=== PATIENT | male | born 1970 | race Caucasian/White ===

== ENCOUNTER 2018-02-18 21:04 | Inpatient (IN) | payer MEDICAID, OTHER ==
[~2018-02-18] VITALS: Ht 177.8 cm; Wt 102.7 kg
[2018-02-18] MEDS ORDERED: LIDOCAINE-MPF 1%, 2ML ONE (21:15)
[2018-02-18] MEDS ORDERED: LIDOCAINE-MPF 1%, 5ML ONE (21:36)
[2018-02-18 21:45] LABS: MEAN CORPUSCULAR HEMOGLOBIN 35.3 pg (27.5-34.5); MEAN CORPUSCULAR VOLUME 100.7 fL (81-97); MEAN PLATELET VOLUME 8.8 fL (7.4-10.4); PLATELET COUNT 208 x10^3/uL (130-400); RED BLOOD COUNT 3.59 x10^6/uL (4.38-5.82); RED CELL DISTRIBUTION WIDTH 16.2 % (9.4-14.8)
[2018-02-18 21:49] LABS: INTERNATIONAL NORMALIZED RATIO 1.77 (0.93-1.1); PROTHROMBIN TIME 18.2 Seconds (9.6-11.5)
[2018-02-18 21:52] LABS: ALANINE AMINOTRANSFERASE 109 U/L (12-78); ALBUMIN 1.4 g/dL (3.4-5.0); ANION GAP 15 mmol/L (5-15); CALCIUM 6.3 mg/dL (8.5-10.1); CHLORIDE 86 mmol/L (98-107); CREATININE 2.97 mg/dL (0.7-1.3)
[2018-02-18 21:55] LABS: ALKALINE PHOSPHATASE 265 U/L (45-117); TOTAL PROTEIN 5.2 g/dL (6.4-8.2)
[2018-02-18 21:57] LABS: BILIRUBIN,TOTAL 18.4 mg/dL (0.2-1.0)
[2018-02-18] MEDS ORDERED: CEFTRIAXONE PMX 1GM/50ML 50 ML IV ONE (22:00)
[2018-02-18 22:03] LABS: BASOPHILS % (AUTO) 0 % (0-1); EOSINOPHILS # (AUTO) 0.01 x10^3/uL (0-0.4); EOSINOPHILS % (AUTO) 0 % (1-7); LYMPHOCYTES # (AUTO) 0.81 x10^3/uL (1-3.4); LYMPHOCYTES % (AUTO) 4 % (22-44); MD SCAN; MONOCYTES # (AUTO) 3.98 x10^3/uL (0.2-0.8); MONOCYTES % (AUTO) 19 % (2-9); NEUTROPHILS # (AUTO) 16.38 x10^3/uL (1.8-6.8); NEUTROPHILS % (AUTO) 77 % (42-75)
[2018-02-18] MEDS ORDERED: CEFTRIAXONE PMX 1GM/50ML 50 ML ONE (22:25)
[2018-02-18] MEDS: CEFTRIAXONE PMX 1GM/50ML 50 ML IV SCH (22:47)
[2018-02-18] MEDS ORDERED: DEXTROSE 50%, 50ML SYRINGE IVPush ONE (23:00)
[2018-02-18] MEDS: ALBUMIN HUMAN 25% 100 ML IV SCH (23:00)
[2018-02-18] MEDS ORDERED: MAGNESIUM SULFATE PMX 4GM/100M 100 ML IV ONE (23:00)
[2018-02-18] MEDS: SODIUM CHLORIDE FLUSH 10ML SYR IVF SCH (23:30)
[2018-02-18] MEDS ORDERED: BISACODYL 10 MG SUPP PR PRN (23:30)
[2018-02-18] MEDS ORDERED: POLYETHYLENE GLYCOL 17 GM PACKET PO PRN (23:30)
[2018-02-18] MEDS ORDERED: ONDANSETRON 2MG/ML, 2ML IVPush PRN (23:30)
[2018-02-18 23:49] LABS: FOLATE LEVEL 4.9 ng/mL (3.1-17.5)
[2018-02-18 23:55] LABS: BILIRUBIN, DIRECT 14.2 mg/dL (0.1-0.2)
[2018-02-19 00:37] LABS: POTASSIUM,URINE RANDOM 62 mmol/L; SODIUM,URINE RANDOM 7 mmol/L
[2018-02-19] MEDS ORDERED: DEXTROSE 50%, 50ML SYRINGE ONE (00:41)
[2018-02-19 00:50] LABS: CHLORIDE,URINE RANDOM < 10 mmol/L
[2018-02-19 01:00] LABS: MICROSCOPIC INDICATED
[2018-02-19 01:01] LABS: CULTURE INDICATED? YES
[2018-02-19 05:13] LABS: ALBUMIN 1.8 g/dL (3.4-5.0); ANION GAP 15 mmol/L (5-15); CALCIUM 6.3 mg/dL (8.5-10.1); CHLORIDE 88 mmol/L (98-107)
[2018-02-19 05:18] LABS: ALANINE AMINOTRANSFERASE 99 U/L (12-78); ALKALINE PHOSPHATASE 230 U/L (45-117); CREATININE 3.14 mg/dL (0.7-1.3); TOTAL PROTEIN 5.1 g/dL (6.4-8.2)
[2018-02-19 05:21] LABS: BILIRUBIN,TOTAL 19.3 mg/dL (0.2-1.0)
[2018-02-19 07:12] LABS: MEAN CORPUSCULAR HEMOGLOBIN 35.4 pg (27.5-34.5); MEAN CORPUSCULAR VOLUME 100.9 fL (81-97); MEAN PLATELET VOLUME 8.9 fL (7.4-10.4); PLATELET COUNT 171 x10^3/uL (130-400); RED BLOOD COUNT 3.41 x10^6/uL (4.38-5.82); RED CELL DISTRIBUTION WIDTH 16.6 % (9.4-14.8)
[2018-02-19 07:31] LABS: MD YES
[2018-02-19 07:37] LABS: INTERNATIONAL NORMALIZED RATIO 1.56 (0.93-1.1); PROTHROMBIN TIME 16.1 Seconds (9.6-11.5)
[2018-02-19 07:40] LABS: ANISOCYTOSIS 1+; BAND#(MANUAL) 0.68 x10^3/uL; BANDS%(MANUAL) 4 % (0-7); LYMPH#(MANUAL) 0.85 x10^3/uL (1-3.4); LYMPHS% (MANUAL) 5 % (22-44); METAMYELOCYTES# (MANUAL) 0.17 x10^3/uL (0-0); METAMYELOCYTES% (MANUAL) 1 % (0-1); MONOS#(MANUAL) 0.34 x10^3/uL (0.3-2.7); MONOS% (MANUAL) 2 % (2-9); SEG#(MANUAL) 14.87 x10^3/uL (1.8-6.8); SEGS% (MANUAL) 88 % (42-75)
[2018-02-19 07:41] LABS: <PLATELET ESTIMATE> ADEQUATE; <PLT MORPHOLOGY> NORMAL PLT MORPH
[2018-02-19] MEDS: ALBUMIN HUMAN 25% 100 ML IV SCH ×2 (07:53→15:19)
[2018-02-19] MEDS: SENNA/DOCUSATE TABLET PO SCH (08:45)
[2018-02-19] MEDS: SODIUM CHLORIDE 0.9% 1,000 ML IV SCH ×2 (12:00→23:05)
[2018-02-19] MEDS: MIDODRINE 5 MG TABLET PO SCH ×3 (13:00→20:31)
[2018-02-19] MEDS: SODIUM CHLORIDE FLUSH 10ML SYR IVF SCH ×2 (15:19→21:00)
[2018-02-19] MEDS: OCTREOTIDE 100MCG/ML, 1ML (0.1MG/ML) SQ SCH ×3 (15:35→20:32)
[2018-02-19 16:16] LABS: OSMOLALITY,URINE 292 mOsm/kg (500-850)
[2018-02-19 16:32] LABS: AMPHETAMINE SCREEN, URINE Negative (Negative); BARBITURATE SCREEN, URINE Negative (Negative); BENZODIAZEPINE SCREEN, URINE Negative (Negative); CANNABINOID SCREEN, URINE Positive (Negative); COCAINE SCREEN, URINE Negative (Negative); METHADONE SCREEN, URINE Negative (Negative); OPIATE SCREEN, URINE Negative (Negative)
[2018-02-19] MEDS ORDERED: ONDANSETRON ODT 4 MG PO PRN (18:30)
[2018-02-19] MEDS ORDERED: DEXTROSE 50%, 50ML SYRINGE IVPush PRN (20:00)
[2018-02-19 21:45] LABS: CLOSTRIDIUM DIFFICILE ANTIGEN NEGATIVE; CLOSTRIDIUM DIFFICILE TOXIN NEGATIVE (Negative)
[2018-02-19] MEDS: CEFTRIAXONE PMX 1GM/50ML 50 ML IV SCH (22:55)
[2018-02-20] MEDS ORDERED: ALBUTEROL SULFATE 2.5 MG/3 ML ONE (02:15)
[2018-02-20] MEDS ORDERED: ALBUTEROL SULFATE 2.5 MG/3 ML NPPB PRN (02:30)
[2018-02-20 04:24] LABS: MEAN CORPUSCULAR HEMOGLOBIN 35.2 pg (27.5-34.5); MEAN CORPUSCULAR HGB CONC 35.1 g/dL (33.2-36.2); MEAN CORPUSCULAR VOLUME 100.5 fL (81-97); MEAN PLATELET VOLUME 8.7 fL (7.4-10.4); PLATELET COUNT 164 x10^3/uL (130-400); RED BLOOD COUNT 3.04 x10^6/uL (4.38-5.82); RED CELL DISTRIBUTION WIDTH 16.4 % (9.4-14.8)
[2018-02-20 04:33] LABS: MD YES
[2018-02-20 04:36] LABS: ALANINE AMINOTRANSFERASE 83 U/L (12-78); ALBUMIN 1.9 g/dL (3.4-5.0); ANION GAP 14 mmol/L (5-15); CHLORIDE 90 mmol/L (98-107)
[2018-02-20 04:38] LABS: ANISOCYTOSIS 1+; BAND#(MANUAL) 0.86 x10^3/uL; BANDS%(MANUAL) 6 % (0-7); LYMPH#(MANUAL) 1.15 x10^3/uL (1-3.4); LYMPHS% (MANUAL) 8 % (22-44); MONOS#(MANUAL) 0.58 x10^3/uL (0.3-2.7); MONOS% (MANUAL) 4 % (2-9); NRBC % (MANUAL) 1 % (0-1); SEG#(MANUAL) 11.81 x10^3/uL (1.8-6.8); SEGS% (MANUAL) 82 % (42-75)
[2018-02-20 04:39] LABS: POLYCHROMASIA 1+; TARGET CELLS 1+
[2018-02-20 04:40] LABS: <PLATELET ESTIMATE> ADEQUATE; <PLT MORPHOLOGY> NORMAL PLT MORPH
[2018-02-20 04:56] LABS: ALKALINE PHOSPHATASE 169 U/L (45-117)
[2018-02-20 05:01] LABS: CREATININE 3.15 mg/dL (0.7-1.3); TOTAL PROTEIN 4.7 g/dL (6.4-8.2)
[2018-02-20 05:03] LABS: CALCIUM 5.9 mg/dL (8.5-10.1)
[2018-02-20 05:35] VITALS: BP 97/52
[2018-02-20] MEDS: OCTREOTIDE 100MCG/ML, 1ML (0.1MG/ML) SQ SCH ×3 (08:29→21:22)
[2018-02-20] MEDS: SODIUM CHLORIDE FLUSH 10ML SYR IVF SCH ×2 (08:30→21:21)
[2018-02-20] MEDS: NICOTINE 21 MG/24 HR PATCH.TD24 TD SCH (08:30)
[2018-02-20] MEDS: SENNA/DOCUSATE TABLET PO SCH (08:30)
[2018-02-20] MEDS: MIDODRINE 5 MG TABLET PO SCH ×3 (08:30→21:23)
[2018-02-20] MEDS ORDERED: NICOTINE 21 MG/24 HR PATCH.TD24 TD SCH (09:00)
[2018-02-20] MEDS ORDERED: CALCIUM GLUCONATE 9.2 MEQ in SODIUM CHLORIDE 0.9% 100 ML IV ONE (09:00)
[2018-02-20 12:00] VITALS: BP 98/55
[2018-02-20] MEDS: SODIUM CHLORIDE 0.9% 1,000 ML IV SCH (13:50)
[2018-02-20 18:40] VITALS: BP 102/57
[2018-02-20] MEDS: CEFTRIAXONE PMX 1GM/50ML 50 ML IV SCH (23:18)
[2018-02-21 00:42] VITALS: BP 99/52
[2018-02-21] MEDS: SODIUM CHLORIDE 0.9% 1,000 ML IV SCH ×2 (03:55→17:20)
[2018-02-21 04:39] LABS: MEAN CORPUSCULAR HGB CONC 35.5 g/dL (33.2-36.2); MEAN CORPUSCULAR VOLUME 101.2 fL (81-97); MEAN PLATELET VOLUME 8.5 fL (7.4-10.4); PLATELET COUNT 158 x10^3/uL (130-400); RED BLOOD COUNT 3.13 x10^6/uL (4.38-5.82); RED CELL DISTRIBUTION WIDTH 16.3 % (9.4-14.8)
[2018-02-21 04:49] LABS: CHLORIDE 93 mmol/L (98-107)
[2018-02-21 05:07] LABS: % IRON SATURATION 54 % (20-55); ALANINE AMINOTRANSFERASE 88 U/L (12-78); ALBUMIN 1.7 g/dL (3.4-5.0); ALKALINE PHOSPHATASE 180 U/L (45-117); IRON LEVEL 59 mcg/dL (65-175); TOTAL IRON BINDING CAPACITY 109 mcg/dL (250-450)
[2018-02-21 05:26] LABS: CALCIUM 5.8 mg/dL (8.5-10.1); CREATININE 2.03 mg/dL (0.7-1.3)
[2018-02-21 05:27] LABS: BILIRUBIN,TOTAL 25.1 mg/dL (0.2-1.0); TOTAL PROTEIN 4.5 g/dL (6.4-8.2)
[2018-02-21 05:31] LABS: ANION GAP 14 mmol/L (5-15)
[2018-02-21 06:14] LABS: MD YES
[2018-02-21 06:15] LABS: BAND#(MANUAL) 0.67 x10^3/uL; BANDS%(MANUAL) 4 % (0-7); EOS% (MANUAL) 3 % (1-7); LYMPH#(MANUAL) 1.17 x10^3/uL (1-3.4); LYMPHS% (MANUAL) 7 % (22-44); MONOS#(MANUAL) 0.84 x10^3/uL (0.3-2.7); MONOS% (MANUAL) 5 % (2-9); NRBC % (MANUAL) 1 % (0-1); SEG#(MANUAL) 13.53 x10^3/uL (1.8-6.8); SEGS% (MANUAL) 81 % (42-75)
[2018-02-21 06:16] LABS: ANISOCYTOSIS 1+; POLYCHROMASIA 1+
[2018-02-21 06:17] LABS: <PLATELET ESTIMATE> ADEQUATE; <PLT MORPHOLOGY> NORMAL PLT MORPH; TARGET CELLS 1+
[2018-02-21 07:15] VITALS: BP 102/48
[2018-02-21] MEDS: SENNA/DOCUSATE TABLET PO SCH (09:00)
[2018-02-21] MEDS: NICOTINE 21 MG/24 HR PATCH.TD24 TD SCH (10:31)
[2018-02-21] MEDS: CALCITRIOL 0.5 MCG CAPSULE PO SCH (10:31)
[2018-02-21] MEDS: ERGOCALCIFEROL 50,000 UNIT CAPSULE PO SCH (10:31)
[2018-02-21] MEDS: MIDODRINE 5 MG TABLET PO SCH ×3 (10:31→19:53)
[2018-02-21] MEDS: SODIUM CHLORIDE FLUSH 10ML SYR IVF SCH ×2 (10:32→19:53)
[2018-02-21] MEDS: OCTREOTIDE 100MCG/ML, 1ML (0.1MG/ML) SQ SCH ×3 (10:32→19:53)
[2018-02-21 14:19] VITALS: BP 94/54
[2018-02-21 18:51] VITALS: BP 93/43
[2018-02-21] MEDS: CEFTRIAXONE PMX 1GM/50ML 50 ML IV SCH (23:04)
[2018-02-22 01:12] VITALS: BP 94/50
[2018-02-22 04:19] LABS: MEAN CORPUSCULAR HEMOGLOBIN 34.9 pg (27.5-34.5); MEAN CORPUSCULAR HGB CONC 34.3 g/dL (33.2-36.2); MEAN CORPUSCULAR VOLUME 101.8 fL (81-97); MEAN PLATELET VOLUME 8.7 fL (7.4-10.4); PLATELET COUNT 145 x10^3/uL (130-400); RED BLOOD COUNT 3.21 x10^6/uL (4.38-5.82); RED CELL DISTRIBUTION WIDTH 16.6 % (9.4-14.8)
[2018-02-22 04:31] LABS: ALANINE AMINOTRANSFERASE 95 U/L (12-78); ALBUMIN 1.7 g/dL (3.4-5.0); ANION GAP 10 mmol/L (5-15); CHLORIDE 99 mmol/L (98-107)
[2018-02-22 04:42] LABS: ALKALINE PHOSPHATASE 218 U/L (45-117); CREATININE 1.34 mg/dL (0.7-1.3); TOTAL PROTEIN 4.6 g/dL (6.4-8.2)
[2018-02-22 04:43] LABS: BILIRUBIN,TOTAL 25.1 mg/dL (0.2-1.0); CALCIUM 5.7 mg/dL (8.5-10.1)
[2018-02-22 04:44] LABS: MD YES
[2018-02-22 04:46] LABS: ANISOCYTOSIS 1+; BAND#(MANUAL) 0.67 x10^3/uL; BANDS%(MANUAL) 4 % (0-7); EOS#(MANUAL) 0.34 x10^3/uL (0.0-0.4); EOS% (MANUAL) 2 % (1-7); LYMPH#(MANUAL) 0.84 x10^3/uL (1-3.4); LYMPHS% (MANUAL) 5 % (22-44); MONOS#(MANUAL) 1.18 x10^3/uL (0.3-2.7); MONOS% (MANUAL) 7 % (2-9); POLYCHROMASIA 1+; SEG#(MANUAL) 13.78 x10^3/uL (1.8-6.8); SEGS% (MANUAL) 82 % (42-75)
[2018-02-22 04:47] LABS: <PLATELET ESTIMATE> ADEQUATE; <PLT MORPHOLOGY> NORMAL PLT MORPH
[2018-02-22] MEDS: SODIUM CHLORIDE 0.9% 1,000 ML IV SCH ×2 (05:29→20:29)
[2018-02-22 07:10] VITALS: BP 97/53
[2018-02-22] MEDS: SENNA/DOCUSATE TABLET PO SCH (08:14)
[2018-02-22] MEDS: NICOTINE 21 MG/24 HR PATCH.TD24 TD SCH (08:33)
[2018-02-22] MEDS: SODIUM CHLORIDE FLUSH 10ML SYR IVF SCH ×2 (08:33→20:30)
[2018-02-22] MEDS: MIDODRINE 5 MG TABLET PO SCH ×3 (08:34→20:30)
[2018-02-22] MEDS: OCTREOTIDE 100MCG/ML, 1ML (0.1MG/ML) SQ SCH ×3 (08:34→21:28)
[2018-02-22] MEDS: CALCITRIOL 0.5 MCG CAPSULE PO SCH (08:34)
[2018-02-22 13:49] VITALS: BP 104/55
[2018-02-22 18:56] VITALS: BP 102/58
[2018-02-22] MEDS: CEFTRIAXONE PMX 1GM/50ML 50 ML IV SCH (23:20)
[2018-02-23 03:29] VITALS: BP 97/51
[2018-02-23 04:45] LABS: MEAN CORPUSCULAR HGB CONC 35.5 g/dL (33.2-36.2); MEAN CORPUSCULAR VOLUME 101.5 fL (81-97); MEAN PLATELET VOLUME 8.3 fL (7.4-10.4); PLATELET COUNT 143 x10^3/uL (130-400); RED BLOOD COUNT 3.18 x10^6/uL (4.38-5.82); RED CELL DISTRIBUTION WIDTH 16.2 % (9.4-14.8)
[2018-02-23 04:48] LABS: ALBUMIN 1.6 g/dL (3.4-5.0); ANION GAP 11 mmol/L (5-15); CALCIUM 6.2 mg/dL (8.5-10.1); CHLORIDE 100 mmol/L (98-107)
[2018-02-23 05:06] LABS: ALANINE AMINOTRANSFERASE 96 U/L (12-78); ALKALINE PHOSPHATASE 240 U/L (45-117)
[2018-02-23 05:24] LABS: CREATININE 1.51 mg/dL (0.7-1.3); TOTAL PROTEIN 4.6 g/dL (6.4-8.2)
[2018-02-23 05:25] LABS: BILIRUBIN,TOTAL 25.5 mg/dL (0.2-1.0)
[2018-02-23 05:40] LABS: MD YES
[2018-02-23 05:42] LABS: ANISOCYTOSIS 1+; BAND#(MANUAL) 1.26 x10^3/uL; BANDS%(MANUAL) 7 % (0-7); EOS#(MANUAL) 0.18 x10^3/uL (0.0-0.4); EOS% (MANUAL) 1 % (1-7); HYPOCHROMIA 1+; LYMPH#(MANUAL) 0.36 x10^3/uL (1-3.4); LYMPHS% (MANUAL) 2 % (22-44); MONOS#(MANUAL) 0.36 x10^3/uL (0.3-2.7); MONOS% (MANUAL) 2 % (2-9); MYELOCYTES# (MANUAL) 0.54 x10^3/uL (0-0); MYELOCYTES% (MANUAL) 3 % (0-0); POLYCHROMASIA 1+; SEGS% (MANUAL) 85 % (42-75)
[2018-02-23 05:43] LABS: <PLATELET ESTIMATE> ADEQUATE; <PLT MORPHOLOGY> NORMAL PLT MORPH
[2018-02-23 06:53] VITALS: BP 105/58
[2018-02-23] MEDS: SENNA/DOCUSATE TABLET PO SCH (08:49)
[2018-02-23] MEDS: SODIUM CHLORIDE FLUSH 10ML SYR IVF SCH ×2 (10:18→19:55)
[2018-02-23] MEDS: NICOTINE 21 MG/24 HR PATCH.TD24 TD SCH (10:19)
[2018-02-23] MEDS: CALCITRIOL 0.5 MCG CAPSULE PO SCH (10:19)
[2018-02-23] MEDS: SODIUM BICARBONATE 650 MG TABLET PO SCH ×3 (10:19→21:20)
[2018-02-23] MEDS: MIDODRINE 5 MG TABLET PO SCH ×3 (10:20→21:20)
[2018-02-23] MEDS: OCTREOTIDE 100MCG/ML, 1ML (0.1MG/ML) SQ SCH ×3 (10:20→21:20)
[2018-02-23 12:33] VITALS: BP 101/54
[2018-02-23 18:22] VITALS: BP 99/58
[2018-02-23] MEDS: CEFTRIAXONE PMX 1GM/50ML 50 ML IV SCH (23:16)
[2018-02-24 03:45] VITALS: BP 98/54
[2018-02-24 08:18] LABS: MEAN CORPUSCULAR HEMOGLOBIN 35.2 pg (27.5-34.5); MEAN CORPUSCULAR HGB CONC 34.8 g/dL (33.2-36.2); MEAN CORPUSCULAR VOLUME 101.1 fL (81-97); MEAN PLATELET VOLUME 8.1 fL (7.4-10.4); PLATELET COUNT 134 x10^3/uL (130-400); RED BLOOD COUNT 3.32 x10^6/uL (4.38-5.82); RED CELL DISTRIBUTION WIDTH 17.2 % (9.4-14.8)
[2018-02-24 08:28] LABS: ALANINE AMINOTRANSFERASE 104 U/L (12-78); ALBUMIN 1.6 g/dL (3.4-5.0); ANION GAP 14 mmol/L (5-15); CALCIUM 6.8 mg/dL (8.5-10.1); CHLORIDE 97 mmol/L (98-107)
[2018-02-24 08:30] LABS: ALKALINE PHOSPHATASE 282 U/L (45-117); CREATININE 2.27 mg/dL (0.7-1.3); TOTAL PROTEIN 4.9 g/dL (6.4-8.2)
[2018-02-24 08:33] LABS: MD YES
[2018-02-24 08:35] LABS: ANISOCYTOSIS 1+; BAND#(MANUAL) 0.67 x10^3/uL; BANDS%(MANUAL) 3 % (0-7); EOS#(MANUAL) 0.45 x10^3/uL (0.0-0.4); EOS% (MANUAL) 2 % (1-7); LYMPH#(MANUAL) 0.67 x10^3/uL (1-3.4); LYMPHS% (MANUAL) 3 % (22-44); MONOS#(MANUAL) 1.12 x10^3/uL (0.3-2.7); MONOS% (MANUAL) 5 % (2-9); MYELOCYTES# (MANUAL) 0.45 x10^3/uL (0-0); MYELOCYTES% (MANUAL) 2 % (0-0); PMNS WITH VACUOLES 1+; SEG#(MANUAL) 18.96 x10^3/uL (1.8-6.8); SEGS% (MANUAL) 85 % (42-75); TOXIC GRAN 1+
[2018-02-24 08:36] LABS: POLYCHROMASIA 1+
[2018-02-24 08:37] LABS: <PLATELET ESTIMATE> ADEQUATE; <PLT MORPHOLOGY> NORMAL PLT MORPH
[2018-02-24 08:48] LABS: BILIRUBIN,TOTAL 27.8 mg/dL (0.2-1.0)
[2018-02-24] MEDS: SENNA/DOCUSATE TABLET PO SCH (09:00)
[2018-02-24 09:07] VITALS: BP 105/53
[2018-02-24] MEDS: SODIUM CHLORIDE FLUSH 10ML SYR IVF SCH ×2 (10:41→20:18)
[2018-02-24] MEDS: NICOTINE 21 MG/24 HR PATCH.TD24 TD SCH (10:42)
[2018-02-24] MEDS: OCTREOTIDE 100MCG/ML, 1ML (0.1MG/ML) SQ SCH ×3 (10:42→20:18)
[2018-02-24] MEDS: CALCITRIOL 0.5 MCG CAPSULE PO SCH (10:43)
[2018-02-24] MEDS: MIDODRINE 5 MG TABLET PO SCH ×3 (10:43→20:17)
[2018-02-24] MEDS: SODIUM BICARBONATE 650 MG TABLET PO SCH ×3 (10:43→20:17)
[2018-02-24] MEDS: ALBUMIN HUMAN 25% 100 ML IV SCH ×2 (13:30→20:17)
[2018-02-24 14:16] LABS: POTASSIUM,URINE RANDOM 23 mmol/L; SODIUM,URINE RANDOM 10 mmol/L
[2018-02-24 14:17] LABS: CHLORIDE,URINE RANDOM < 10 mmol/L
[2018-02-24 14:30] LABS: MICROSCOPIC INDICATED
[2018-02-24 14:32] LABS: CULTURE INDICATED? YES
[2018-02-24 15:41] VITALS: BP 101/57
[2018-02-24] MEDS: ALUMINUM/MAG/SIMETHICONE 30 ML UDC PO PRN (17:44)
[2018-02-24] MEDS: CIPROFLOXACIN 250 MG TABLET PO SCH ×2 (17:46→20:17)
[2018-02-24 19:06] VITALS: BP 104/65
[2018-02-25 03:03] VITALS: BP 99/58
[2018-02-25 04:42] LABS: MEAN CORPUSCULAR HEMOGLOBIN 36.2 pg (27.5-34.5); MEAN CORPUSCULAR VOLUME 100.6 fL (81-97); MEAN PLATELET VOLUME 8.7 fL (7.4-10.4); PLATELET COUNT 122 x10^3/uL (130-400); RED BLOOD COUNT 3.11 x10^6/uL (4.38-5.82); RED CELL DISTRIBUTION WIDTH 16.8 % (9.4-14.8)
[2018-02-25 04:50] LABS: ALBUMIN 2.1 g/dL (3.4-5.0); ANION GAP 12 mmol/L (5-15); CALCIUM 7.2 mg/dL (8.5-10.1); CHLORIDE 98 mmol/L (98-107)
[2018-02-25] MEDS: ALBUMIN HUMAN 25% 100 ML IV SCH ×3 (04:57→21:40)
[2018-02-25 05:04] LABS: MD YES
[2018-02-25 05:07] LABS: ANISOCYTOSIS 1+; BANDS%(MANUAL) 3 % (0-7); EOS#(MANUAL) 0.23 x10^3/uL (0.0-0.4); EOS% (MANUAL) 1 % (1-7); LYMPH#(MANUAL) 0.93 x10^3/uL (1-3.4); LYMPHS% (MANUAL) 4 % (22-44); METAMYELOCYTES# (MANUAL) 0.23 x10^3/uL (0-0); METAMYELOCYTES% (MANUAL) 1 % (0-1); MONOS#(MANUAL) 0.47 x10^3/uL (0.3-2.7); MONOS% (MANUAL) 2 % (2-9); POLYCHROMASIA 1+; SEG#(MANUAL) 20.74 x10^3/uL (1.8-6.8); SEGS% (MANUAL) 89 % (42-75)
[2018-02-25 05:08] LABS: <PLATELET ESTIMATE> ADEQUATE; <PLT MORPHOLOGY> NORMAL PLT MORPH; TOXIC GRAN 1+
[2018-02-25 09:02] VITALS: BP 98/52
[2018-02-25] MEDS: MIDODRINE 5 MG TABLET PO SCH ×3 (10:16→21:39)
[2018-02-25] MEDS: SODIUM BICARBONATE 650 MG TABLET PO SCH ×3 (10:16→21:40)
[2018-02-25] MEDS: SENNA/DOCUSATE TABLET PO SCH (10:16)
[2018-02-25] MEDS: CALCITRIOL 0.5 MCG CAPSULE PO SCH (10:17)
[2018-02-25] MEDS: NICOTINE 21 MG/24 HR PATCH.TD24 TD SCH (10:17)
[2018-02-25] MEDS: SODIUM CHLORIDE FLUSH 10ML SYR IVF SCH ×2 (10:17→21:40)
[2018-02-25] MEDS: OCTREOTIDE 100MCG/ML, 1ML (0.1MG/ML) SQ SCH ×3 (10:36→21:39)
[2018-02-25 15:20] VITALS: BP 106/60
[2018-02-25] MEDS: CIPROFLOXACIN 250 MG TABLET PO SCH (17:46)
[2018-02-25 19:08] VITALS: BP 106/57
[2018-02-25] MEDS: ALUMINUM/MAG/SIMETHICONE 30 ML UDC PO PRN (21:37)
[2018-02-26 00:08] VITALS: BP 109/55
[2018-02-26 04:32] LABS: MEAN CORPUSCULAR HEMOGLOBIN 35.6 pg (27.5-34.5); MEAN CORPUSCULAR HGB CONC 35.3 g/dL (33.2-36.2); MEAN CORPUSCULAR VOLUME 100.7 fL (81-97); MEAN PLATELET VOLUME 8.5 fL (7.4-10.4); PLATELET COUNT 116 x10^3/uL (130-400); RED BLOOD COUNT 2.85 x10^6/uL (4.38-5.82); RED CELL DISTRIBUTION WIDTH 17.7 % (9.4-14.8)
[2018-02-26 04:43] LABS: ALBUMIN 2.5 g/dL (3.4-5.0); ANION GAP 11 mmol/L (5-15); CALCIUM 8.1 mg/dL (8.5-10.1); CHLORIDE 99 mmol/L (98-107)
[2018-02-26 04:44] LABS: CREATININE 3.36 mg/dL (0.7-1.3)
[2018-02-26 05:38] LABS: MD YES
[2018-02-26 05:40] LABS: ANISOCYTOSIS 1+; BAND#(MANUAL) 2.09 x10^3/uL; BANDS%(MANUAL) 10 % (0-7); LYMPH#(MANUAL) 0.84 x10^3/uL (1-3.4); LYMPHS% (MANUAL) 4 % (22-44); MONOS#(MANUAL) 0.63 x10^3/uL (0.3-2.7); MONOS% (MANUAL) 3 % (2-9); MYELOCYTES# (MANUAL) 0.42 x10^3/uL (0-0); MYELOCYTES% (MANUAL) 2 % (0-0); SEG#(MANUAL) 16.93 x10^3/uL (1.8-6.8); SEGS% (MANUAL) 81 % (42-75)
[2018-02-26 05:41] LABS: TOXIC GRAN 1+
[2018-02-26 05:42] LABS: PMNS WITH VACUOLES 1+
[2018-02-26 05:44] LABS: <PLATELET ESTIMATE> ADEQUATE; <PLT MORPHOLOGY> NORMAL PLT MORPH
[2018-02-26] MEDS: CIPROFLOXACIN 250 MG TABLET PO SCH ×2 (05:47→17:18)
[2018-02-26] MEDS: ALBUMIN HUMAN 25% 100 ML IV SCH ×3 (05:47→22:18)
[2018-02-26 06:58] VITALS: BP 102/61
[2018-02-26] MEDS: SENNA/DOCUSATE TABLET PO SCH (09:00)
[2018-02-26] MEDS: SODIUM CHLORIDE FLUSH 10ML SYR IVF SCH ×2 (09:30→22:20)
[2018-02-26] MEDS: MIDODRINE 5 MG TABLET PO SCH ×3 (09:31→22:19)
[2018-02-26] MEDS: SODIUM BICARBONATE 650 MG TABLET PO SCH ×3 (09:31→22:18)
[2018-02-26] MEDS: OCTREOTIDE 100MCG/ML, 1ML (0.1MG/ML) SQ SCH ×3 (09:34→22:19)
[2018-02-26] MEDS: NICOTINE 21 MG/24 HR PATCH.TD24 TD SCH (09:35)
[2018-02-26] MEDS: ALUMINUM/MAG/SIMETHICONE 30 ML UDC PO PRN (09:46)
[2018-02-26 13:31] VITALS: BP 99/51
[2018-02-26 19:34] VITALS: BP 106/65
[2018-02-27 00:24] VITALS: BP 106/54
[2018-02-27 04:55] LABS: MEAN CORPUSCULAR HEMOGLOBIN 36.6 pg (27.5-34.5); MEAN CORPUSCULAR HGB CONC 35.7 g/dL (33.2-36.2); MEAN CORPUSCULAR VOLUME 102.3 fL (81-97); MEAN PLATELET VOLUME 8.9 fL (7.4-10.4); PLATELET COUNT 111 x10^3/uL (130-400); RED BLOOD COUNT 2.81 x10^6/uL (4.38-5.82); RED CELL DISTRIBUTION WIDTH 17.3 % (9.4-14.8)
[2018-02-27 05:08] LABS: ALBUMIN 2.8 g/dL (3.4-5.0); ANION GAP 10 mmol/L (5-15); CALCIUM 8.3 mg/dL (8.5-10.1); CHLORIDE 99 mmol/L (98-107)
[2018-02-27 05:12] LABS: CREATININE 3.55 mg/dL (0.7-1.3)
[2018-02-27 05:39] LABS: MD YES
[2018-02-27 05:41] LABS: <PLATELET ESTIMATE> DECREASED; <PLT MORPHOLOGY> NORMAL PLT MORPH; ANISOCYTOSIS 1+; BAND#(MANUAL) 0.86 x10^3/uL; BANDS%(MANUAL) 4 % (0-7); EOS#(MANUAL) 0.22 x10^3/uL (0.0-0.4); EOS% (MANUAL) 1 % (1-7); LYMPH#(MANUAL) 1.08 x10^3/uL (1-3.4); LYMPHS% (MANUAL) 5 % (22-44); METAMYELOCYTES# (MANUAL) 0.22 x10^3/uL (0-0); METAMYELOCYTES% (MANUAL) 1 % (0-1); MONOS#(MANUAL) 0.86 x10^3/uL (0.3-2.7); MONOS% (MANUAL) 4 % (2-9); SEG#(MANUAL) 18.36 x10^3/uL (1.8-6.8); SEGS% (MANUAL) 85 % (42-75)
[2018-02-27 05:42] LABS: TOXIC GRAN 1+
[2018-02-27] MEDS: CIPROFLOXACIN 250 MG TABLET PO SCH ×2 (06:13→17:44)
[2018-02-27] MEDS: ALBUMIN HUMAN 25% 100 ML IV SCH ×3 (06:13→22:23)
[2018-02-27] MEDS: ALUMINUM/MAG/SIMETHICONE 30 ML UDC PO PRN ×2 (06:13→22:24)
[2018-02-27 08:22] VITALS: BP 104/60
[2018-02-27] MEDS: CALCITRIOL 0.25 MCG CAPSULE PO SCH (08:34)
[2018-02-27] MEDS: SODIUM CHLORIDE FLUSH 10ML SYR IVF SCH ×2 (08:34→20:23)
[2018-02-27] MEDS: MIDODRINE 5 MG TABLET PO SCH ×3 (08:34→20:23)
[2018-02-27] MEDS: SENNA/DOCUSATE TABLET PO SCH (08:35)
[2018-02-27] MEDS: OCTREOTIDE 100MCG/ML, 1ML (0.1MG/ML) SQ SCH ×3 (08:35→20:22)
[2018-02-27] MEDS: SODIUM BICARBONATE 650 MG TABLET PO SCH ×3 (08:35→20:22)
[2018-02-27] MEDS: NICOTINE 21 MG/24 HR PATCH.TD24 TD SCH (08:35)
[2018-02-27 15:51] VITALS: BP 108/62
[2018-02-27 18:34] VITALS: BP 107/55
[2018-02-28 00:33] VITALS: BP 107/60
[2018-02-28] MEDS: CIPROFLOXACIN 250 MG TABLET PO SCH ×2 (05:59→16:42)
[2018-02-28] MEDS: ALBUMIN HUMAN 25% 100 ML IV SCH (05:59)
[2018-02-28 06:30] LABS: MEAN CORPUSCULAR HEMOGLOBIN 36.4 pg (27.5-34.5); MEAN CORPUSCULAR HGB CONC 35.7 g/dL (33.2-36.2); MEAN PLATELET VOLUME 8.8 fL (7.4-10.4); PLATELET COUNT 100 x10^3/uL (130-400); RED BLOOD COUNT 2.48 x10^6/uL (4.38-5.82)
[2018-02-28 06:36] LABS: ALBUMIN 2.7 g/dL (3.4-5.0); ANION GAP 12 mmol/L (5-15); CALCIUM 8.8 mg/dL (8.5-10.1); CHLORIDE 100 mmol/L (98-107)
[2018-02-28 06:37] VITALS: BP 106/58
[2018-02-28 06:38] LABS: CREATININE 3.65 mg/dL (0.7-1.3)
[2018-02-28 06:54] LABS: MD YES
[2018-02-28 06:56] LABS: <PLATELET ESTIMATE> DECREASED; <PLT MORPHOLOGY> NORMAL PLT MORPH; ANISOCYTOSIS 1+; BAND#(MANUAL) 0.84 x10^3/uL; BANDS%(MANUAL) 4 % (0-7); EOS#(MANUAL) 0.21 x10^3/uL (0.0-0.4); EOS% (MANUAL) 1 % (1-7); LYMPH#(MANUAL) 1.69 x10^3/uL (1-3.4); LYMPHS% (MANUAL) 8 % (22-44); METAMYELOCYTES# (MANUAL) 0.21 x10^3/uL (0-0); METAMYELOCYTES% (MANUAL) 1 % (0-1); MONOS#(MANUAL) 1.06 x10^3/uL (0.3-2.7); MONOS% (MANUAL) 5 % (2-9); MYELOCYTES# (MANUAL) 0.21 x10^3/uL (0-0); MYELOCYTES% (MANUAL) 1 % (0-0); POLYCHROMASIA 1+; SEG#(MANUAL) 16.88 x10^3/uL (1.8-6.8); SEGS% (MANUAL) 80 % (42-75); TOXIC GRAN 1+
[2018-02-28] MEDS: CALCITRIOL 0.25 MCG CAPSULE PO SCH (07:55)
[2018-02-28] MEDS: SODIUM BICARBONATE 650 MG TABLET PO SCH ×3 (07:55→20:27)
[2018-02-28] MEDS: MIDODRINE 5 MG TABLET PO SCH ×3 (07:55→20:27)
[2018-02-28] MEDS: OCTREOTIDE 100MCG/ML, 1ML (0.1MG/ML) SQ SCH (07:56)
[2018-02-28] MEDS: SENNA/DOCUSATE TABLET PO SCH ×2 (07:56→08:00)
[2018-02-28] MEDS: NICOTINE 21 MG/24 HR PATCH.TD24 TD SCH (07:57)
[2018-02-28] MEDS: SODIUM CHLORIDE FLUSH 10ML SYR IVF SCH ×2 (08:00→20:27)
[2018-02-28] MEDS: ERGOCALCIFEROL 50,000 UNIT CAPSULE PO SCH (08:00)
[2018-02-28 12:56] VITALS: BP 113/65
[2018-02-28] MEDS: ALUMINUM/MAG/SIMETHICONE 30 ML UDC PO PRN ×2 (13:41→20:32)
[2018-02-28 18:54] VITALS: BP 108/61
[2018-03-01 00:48] VITALS: BP 113/61
[2018-03-01 04:02] LABS: MEAN CORPUSCULAR HEMOGLOBIN 36.6 pg (27.5-34.5); MEAN CORPUSCULAR HGB CONC 35.7 g/dL (33.2-36.2); MEAN CORPUSCULAR VOLUME 102.4 fL (81-97); MEAN PLATELET VOLUME 8.5 fL (7.4-10.4); PLATELET COUNT 105 x10^3/uL (130-400); RED BLOOD COUNT 2.29 x10^6/uL (4.38-5.82); RED CELL DISTRIBUTION WIDTH 17.8 % (9.4-14.8)
[2018-03-01 04:05] LABS: ALBUMIN 2.5 g/dL (3.4-5.0); ANION GAP 11 mmol/L (5-15); CALCIUM 8.4 mg/dL (8.5-10.1); CHLORIDE 101 mmol/L (98-107)
[2018-03-01 04:16] LABS: CREATININE 3.64 mg/dL (0.7-1.3)
[2018-03-01 04:23] LABS: MD YES
[2018-03-01 04:24] LABS: BAND#(MANUAL) 0.21 x10^3/uL; BANDS%(MANUAL) 1 % (0-7); EOS#(MANUAL) 0.43 x10^3/uL (0.0-0.4); EOS% (MANUAL) 2 % (1-7); LYMPH#(MANUAL) 0.43 x10^3/uL (1-3.4); LYMPHS% (MANUAL) 2 % (22-44); METAMYELOCYTES# (MANUAL) 0.21 x10^3/uL (0-0); METAMYELOCYTES% (MANUAL) 1 % (0-1)
[2018-03-01 04:25] LABS: ANISOCYTOSIS 1+; MONOS#(MANUAL) 0.64 x10^3/uL (0.3-2.7); MONOS% (MANUAL) 3 % (2-9); SEG#(MANUAL) 19.38 x10^3/uL (1.8-6.8); SEGS% (MANUAL) 91 % (42-75); TOXIC GRAN 1+
[2018-03-01 04:26] LABS: <PLATELET ESTIMATE> DECREASED; <PLT MORPHOLOGY> NORMAL PLT MORPH
[2018-03-01] MEDS: CIPROFLOXACIN 250 MG TABLET PO SCH (04:57)
[2018-03-01 08:27] VITALS: BP 104/56
[2018-03-01] MEDS: SODIUM BICARBONATE 650 MG TABLET PO SCH (08:31)
[2018-03-01] MEDS: CALCITRIOL 0.25 MCG CAPSULE PO SCH (08:31)
[2018-03-01] MEDS: MIDODRINE 5 MG TABLET PO SCH (08:36)
[2018-03-01] MEDS: SENNA/DOCUSATE TABLET PO SCH (08:38)
[2018-03-01] MEDS: SODIUM CHLORIDE FLUSH 10ML SYR IVF SCH (08:38)
[2018-03-01] MEDS: NICOTINE 21 MG/24 HR PATCH.TD24 TD SCH (08:46)
[2018-03-01] MEDS ORDERED: OCTREOTIDE 100MCG/ML, 1ML (0.1MG/ML) SQ SCH (09:30)
[2018-03-01] MEDS ORDERED: ALBUMIN HUMAN 25% 100 ML IV SCH (09:30)
[2018-03-01] MEDS: MORPHINE SULFATE 4 MG/ML, 1ML IVPush PRN ×3 (12:40→17:51)
[2018-03-01] MEDS: LORazepam 2 MG/ML, 1ML IVPush PRN ×2 (12:41→18:09)
[2018-03-01 14:53] VITALS: BP 86/46
== END 2018-03-02 00:30 | disposition expired | DRG 871 ==
LOC: ED 22:53 → EDIP 23:01 → CCU 02-19 13:13 → 3NW 02-20 11:35
PROVIDERS: ADMIT Internal Medicine; ATTEND Internal Medicine
PROC: 0W9G3ZZ Drainage of Peritoneal Cavity, Percutaneous Approach (ICD-10-PCS; principal; 2018-02-18)
DX: A41.9 Sepsis, unspecified organism (principal); E43 Unspecified severe protein-calorie malnutrition; J96.01 Acute respiratory failure with hypoxia; K72.00 Acute and subacute hepatic failure without coma; K76.7 Hepatorenal syndrome; R65.21 Severe sepsis with septic shock; G93.41 Metabolic encephalopathy; J90 Pleural effusion, not elsewhere classified; K65.2 Spontaneous bacterial peritonitis; K85.90 Acute pancreatitis without necrosis or infection, unspecified; D68.9 Coagulation defect, unspecified; E87.1 Hypo-osmolality and hyponatremia; N17.9 Acute kidney failure, unspecified; K62.5 Hemorrhage of anus and rectum; E83.42 Hypomagnesemia; E83.51 Hypocalcemia; D53.9 Nutritional anemia, unspecified; F10.20 Alcohol dependence, uncomplicated; F12.90 Cannabis use, unspecified, uncomplicated; F17.210 Nicotine dependence, cigarettes, uncomplicated; I10 Essential (primary) hypertension; K70.11 Alcoholic hepatitis with ascites; K76.0 Fatty (change of) liver, not elsewhere classified; Z51.5 Encounter for palliative care; Z68.35 Body mass index [BMI] 35.0-35.9, adult
CPT/HCPCS: 36415; 49083; 76700; 76770; 80053; 80069; 80074; 80307; 81001; 82042; 82043; 82105; 82140; 82248; 82306; 82330; 82436; 82570; 82607; 82728; 82746; 82962; 83540; 83550; 83605; 83615; 83690; 83735; 83930; 83935; 83970; 84100; 84133; 84145; 84295; 84300; 84540; 85025; 85610; 87040; 87070; 87081; 87086; 87205; 87324; 88112; 89051; 93005; 94640; 96365; 96366; 96367; 96375; J0610; J0696; J2354; J3490; J7613; P9047; Q0162; J2060; J3475; J7030; Q0177